=== PATIENT | male | born 1975 | race African-American/Black ===

== ENCOUNTER 2019-05-17 13:27 | Inpatient (IN) | payer OTHER ==
[~2019-05-17] VITALS: Ht 187.9 cm; Wt 89.9 kg
[2019-05-17] VITALS (29 sets, daily range): BP systolic 72–123; BP diastolic 33–76
--- NOTE | 2019-05-17 13:27 | NUR ---
PT ARRIVED AT 1305 BUT WAS NOT REGISTERED UNTIL THIS TIME, 1327.
[2019-05-17 14:17] LABS: BILIRUBIN NEGATIVE (NEGATIVE); BLOOD 3+ (NEGATIVE); CLARITY SL CLOUDY (CLEAR); COLOR YELLOW (YELLOW); GLUCOSE 1+ (NEGATIVE); KETONE NEGATIVE (NEGATIVE); LEUKO ESTERASE NEGATIVE (NEGATIVE); NITRITE NEGATIVE (NEGATIVE); UROBILINOGEN 0.2 E.U./dl (0.2-1.0)
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
[2019-05-17 14:24] LABS: ABG O2 SATURATION 92.3 % (95-97); ARTERIAL BLOOD GAS PCO2 60.9 mmHg (35-45); ARTERIAL BLOOD GAS PO2 85.3 mmHg (80-90)
[2019-05-17 14:25] LABS: URINE AMPHETAMINES < 1000 (1000ng/ml); URINE BARBITURATES < 200 (200ng/ml); URINE BENZODIAZEPINES < 200 (200ng/ml); URINE CANNABINOIDS (THC) > 50 (50ng/ml); URINE COCAINE > 300 (300ng/ml); URINE METHADONE < 300 (300ng/ml); URINE OPIATES > 300 (300ng/ml); URINE PHENCYCLIDINE < 25 (25ng/ml)
[2019-05-17 14:28] LABS: ABG BASE EXCESS -15.9 mmol/L (-2.0-2.0); ARTERIAL BLOOD GAS PH 7.049 (7.35-7.45)
--- NOTE | 2019-05-17 14:30 | NUR ---
VENT SETTINGS UPDATED: VT 500 R 16 PEEP 5 FIO2 50%
[2019-05-17 14:41] LABS: BACTERIA 2+; EPITHELIAL CELLS 0-2; FINE GRANULAR CAST 0-2; WBC 0-2 wbc/hpf (0-5)
[2019-05-17 14:49] LABS: HEMATOCRIT 50.8 % (42.0-52.0); HEMOGLOBIN 15.9 g/dl (14.0-18.0); MEAN CELL VOLUME 97.9 fl (80.0-94.0); MEAN CORPUSCULAR HGB 30.6 pg (27.0-31.0); MEAN CORPUSCULAR HGB CONC 31.3 g/dl (33.0-37.0); PLATELET COUNT AUTOMATED 213 10*3/uL (130-400); RED BLOOD COUNT 5.19 10*6/uL (4.50-5.90); RED CELL DISTRI WIDTH 13.2 % (0-14.5); WHITE BLOOD COUNT 15.9 10*3/uL (4.8-10.8)
--- NOTE | 2019-05-17 14:55 | NUR ---
PT TO CT NOW. VITALS AND POX STABLE AND UNCHANGE FOR 30 MINUTES OR MORE.
[2019-05-17 15:11] LABS: ALBUMIN 4.1 gm/dl (3.1-4.5); ALKALINE PHOSPHATASE 100 U/L (45-117); BUN 20 mg/dl (7-24); CHLORIDE 105 mmol/L (98-107); CREATININE 2.41 mg/dL (0.70-1.30); POTASSIUM 4.7 mmol/L (3.5-5.1); SGOT/AST 637 IU/L (3-35); SGPT/ALT 428 U/L (12-78); SODIUM 140 mmol/L (136-145)
--- NOTE | 2019-05-17 15:13 | NUR ---
PT NOW RETURNS FROM CT DEPARTMENT. NURSE REPORT TO SCOOTER SOLIS, FOR CONTINUATION OF CARE. BP DOWN TO 80/50 AUTOCUFF UPON ARRIVAL TO EXAM BED FROM CT. BP HAD BEEN STABLE IN THE 110'S PRIOR. SALINE BOLUS INFUSING. PROVIDER MADE AWARE.
[2019-05-17 15:14] LABS: ATYPICAL LYMPHS 1 % (0-0); TOTAL CELLS COUNTED 100 #CELLS
[2019-05-17 15:15] LABS: PLATELET SUFFICIENCY NORMAL (NORMAL)
[2019-05-17 15:22] LABS: CPK 1679 U/L (39-308)
[2019-05-17 15:24] LABS: ETHYL ALCOHOL < 3.0 mg/dl (<3); TROPONIN I 0.285 ng/ml (<0.045)
--- NOTE | 2019-05-17 15:50 | NUR ---
PROPOFOL DECREASED TO 40 MCG/KG/MIN. DR ARDON IN ROOM AND AWARE OF PT'S BLOOD PRESSURE AT THIS TIME.
--- NOTE | 2019-05-17 16:25 | NUR ---
A 44, admitted to ICCU, under the services of MARILUZ Bolton DO with a diagnosis of CHAR, resp failure, overdose. Chief complaint is in car in parking lot-unresponsive,apneic. Patient arrived via stretcher from ER. Monitor applied. Initial assessment completed. Vital signs taken and recorded. MARILUZ BOLTON DO notified of admission to the unit Pt intubated upon arrival to iccu, diprovan/levaphed, vanco infusing, rectal temp 89, bear hugger placed on, bilat wrist restraints on.klein secure See assessment for past medical history, medications and allergies. Patient and/or family oriented to unit. [facility] ICCU visitation policy reviewed. Clothing/patient valuable form completed. KAYODE ABRAHAM
[2019-05-17 17:40] LABS: ABG HCO3 21.5 mmol/l (22-26); ABG O2 SATURATION 88.2 % (95-97); ARTERIAL BLOOD GAS PCO2 45.9 mmHg (35-45); ARTERIAL BLOOD GAS PH 7.264 (7.35-7.45); ARTERIAL BLOOD GAS PO2 46.5 mmHg (80-90)
[2019-05-17 17:41] LABS: ABG BASE EXCESS -6.8 mmol/L (-2.0-2.0)
--- NOTE | 2019-05-17 17:50 | NUR ---
NOTIFIED OF NEW CONSULT ORDER.
[2019-05-17 17:54] LABS: ACT PARTIAL THROMBO TIME 26.5 SECONDS (20.0-32.1)
[2019-05-17 19:46] LABS: ABG BASE EXCESS -4.3 mmol/L (-2.0-2.0); ABG HCO3 22.6 mmol/l (22-26); ABG O2 SATURATION 95.8 % (95-97); ARTERIAL BLOOD GAS PH 7.307 (7.35-7.45); ARTERIAL BLOOD GAS PO2 71.3 mmHg (80-90)
--- NOTE | 2019-05-17 20:03 | NUR ---
MESSAGE LEFT ON DR. CLEVELAND'S ANSWERING MACHINE REGARDING CONSULT. ERA CLARK RN
--- NOTE | 2019-05-17 20:05 | NUR ---
SHARONA FROM RESP CALLED DR. ANTON WITH UPDATED ABG RESULTS. NO FURTHER ORDERS RECEIVED.
--- NOTE | 2019-05-17 20:30 | NUR ---
PT. RESTING QUIETLY SEDATED ON DIPROVAN DRIP AT 20MICS. LEVOPHED CONTINUES AT 7MICS. HEPARIN ALSO INFUSING AT 12UNITS. RIJ MLC INTACT, ALL PORTS PATENT. BEAR HUGGER REMAINS ON TO INCREASE CORE TEMP. OGT PLACEMENT CONFIRMED WITH CHEST XRAY AND AIR BOLUS. LUNGS HAVE RHONCHI BILAT, PULSE OX 96% ON 50% FIO2. PT. GIVEN ORAL MOUTH CARE AND SUCTIONED VIA ENDO AND ORALLY FOR MODERATE AMTS OF CLEAR AND THICK YELLOW SECRETIONS. PULIDO CATHETER DRAINING A CLEAR YELLOW URINE. SOFT WRIST RESTRAINTS ON BILAT TO PREVENT ACCIDENTAL SELF-EXTUBATION. ERA CLARK RN
--- NOTE | 2019-05-17 22:12 | NUR ---
MESSAGE LEFT ON DR. KOTHARI'S ANSWERING SERVICE REGARDING THE ELEV TROPONIN OF 1.020 FROM 0.827. ERA CLARK RN
--- NOTE | 2019-05-17 22:14 | NUR ---
TYLENOL GIVEN VIA OGT FOR TEMP OF 101.5 RECTALLY. BLOOD CULTURES OBTAINED IN THE ER PRIOR TO ADM TO THE FLOOR TODAY. BEAR HUGGER OFF PRIOR TO INCREASE IN TEMP. ERA CLARK RN
--- NOTE | 2019-05-17 22:46 | NUR ---
DR. KOTHARI RETURNED CALL, UPDATED TO PT STATUS AND CURRENT TROPONIN. ALSO TALKED WITH DR. KAMARA REGARDING PATIENTS CURRENT TEMP OF 101.8. WILL CONTINUE TO MONITOR. ERA CLARK RN
--- NOTE | 2019-05-17 23:39 | NUR ---
CURRENT TEMP 101.1, DOWN FROM 101.8, TYLENOL EFFECTIVELY WORKING. ERA CLARK RN
[2019-05-18] VITALS (47 sets, daily range): BP systolic 87–133; BP diastolic 50–77
--- NOTE | 2019-05-18 03:05 | NUR ---
PT'S PTT 90.9, HEPARIN HELD FOR 1 HOUR AND RESUMED AT 9UNITS AN HOUR THEREAFTER.
[2019-05-18 04:31] LABS: HEMATOCRIT 43.2 % (42.0-52.0); HEMOGLOBIN 14.4 g/dl (14.0-18.0); MEAN CORPUSCULAR HGB 30.6 pg (27.0-31.0); MEAN CORPUSCULAR HGB CONC 33.3 g/dl (33.0-37.0); MEAN PLATELET VOLUME 10.1 fl (9.6-12.3); PLATELET COUNT AUTOMATED 193 10*3/uL (130-400); RED BLOOD COUNT 4.71 10*6/uL (4.50-5.90); RED CELL DISTRI WIDTH 13.3 % (0-14.5); WHITE BLOOD COUNT 11.4 10*3/uL (4.8-10.8)
[2019-05-18 04:32] LABS: MEAN CELL VOLUME 91.7 fl (80.0-94.0)
[2019-05-18 04:43] LABS: ALBUMIN 3.1 gm/dl (3.1-4.5); CREATININE 2.26 mg/dL (0.70-1.30); PHOSPHOROUS 3.6 mg/dL (2.5-4.9); POTASSIUM 5.4 mmol/L (3.5-5.1); TOTAL PROTEIN 6.8 gm/dL (6.4-8.2)
[2019-05-18 04:51] LABS: PLATELET SUFFICIENCY NORMAL (NORMAL); TOTAL CELLS COUNTED 100 #CELLS
[2019-05-18 07:19] LABS: ABG BASE EXCESS -0.5 mmol/L (-2.0-2.0); ABG HCO3 23.7 mmol/l (22-26); ABG O2 SATURATION 98.2 % (95-97); ARTERIAL BLOOD GAS PCO2 40.7 mmHg (35-45); ARTERIAL BLOOD GAS PH 7.386 (7.35-7.45); ARTERIAL BLOOD GAS PO2 90.8 mmHg (80-90)
--- NOTE | 2019-05-18 07:28 | NUR ---
Shift chart check completed.24 HR chart check completed.
--- NOTE | 2019-05-18 08:16 | NUR ---
ON ASSESSMENT PATIENT IS LYING QUIETLY IN BED, ON VENTILATOR. DIPRIVAN AT 20MCG/KG/MIN. PT AROUSES TO HIS NAME, NODS HIS HEAD, SQUEEZES MY HAND ON COMMAND, THEREFORE NO SEDATION VACATION DONE. LEVOPHED DRIP CONTINUES AT 6MCG/MIN. HEPARIN DRIP AT 9UNITS/KG/MIN. PULIDO PATENT CLEAR YELLOW URINE. NO PERIPHERAL EDEMA. ABDOMEN IS SOFT AND NON-TENDER. ETT SECURE. SOFT WRIST RESTRAINTS INTACT WITH NO IMPAIRMENT TO CIRCULATION. CONTINUOUS RECTAL PROBE MONITORING RECTAL TEMP. BED IN LOW POSITION AND LOCKED. IN CLOSE OBSERVATION. SEE ALL APPROPRIATE INTERVENTIONS.
--- NOTE | 2019-05-18 09:00 | NUR ---
PT ON VENT, UNABLE TO VISIT AT THIS TIME. WILL CONTINUE TO FOLLOW.
--- NOTE | 2019-05-18 09:07 | NUR ---
DR ANTON AND FELIPA HAVE VISITED. ADELA ANTOINE TURNED OFF AT 0830. PT IS CALM, RESTING EASILY. HE AROUSES TO MY VOICE. HE SQUEEZES MY HAND WITH BOTH HANDS ON COMMAND. HE SHRUGS HIS SHOULDERS ON COMMAND.
--- NOTE | 2019-05-18 09:21 | NUR ---
PTT 62.4 (THERAPEUTIC). NO CHANGE IN INFUSION RATE. REPEAT PTT ORDERED FOR 11/12 AM.
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
--- NOTE | 2019-05-18 10:20 | NUR ---
LEVOPHED HAS BEEN TITRATED BY 50% TO 3MCG/MIN AND THEN OFF. MAP STAYING >65%.
--- NOTE | 2019-05-18 11:49 | NUR ---
A VISITOR IN TO SEE PT. PT IS COOPERATIVE. REMAINS ON NASAL CANNULA AT 2L/MIN. BP STABLE SINCE LEVOPHED D/C.
--- NOTE | 2019-05-18 13:52 | NUR ---
CATHTER HAS BEEN REMOVED AND HE HAS VOIDED SMALL AMOUNT YELLOW URINE. HE HAS MAINTAINED NPO FOR PAST 4 HOURS. NOW EATING POPSICLE. GIRLFRIEND AT BEDSIDE. ALL ARE COOPERATIVE.
--- NOTE | 2019-05-18 15:13 | NUR ---
DR STEINBERG HAS VISITED. ASPIRIN BY MOUTH GIVEN AND D5.45NS STARTED AT 100ML/HR TO INFUSE X 1 BAG PER HIS ORDERS. HE HAS HAD VISITORS AND HIS GIRLFRIEND HAS BROUGHT HIM GLASSES, TWO CELL PHONES AND HIS WALLET. HE'S SLEEPIER NOW THAN WHEN HE WAS EXTUBATED. HIS PHONE'S SET ON VIBRATE AND HE WILL AROUSE AND ANSWER THE PHONE.
--- NOTE | 2019-05-18 15:38 | NUR ---
PT HAS TOLERATED MORE POPSICLES.
--- NOTE | 2019-05-18 18:30 | NUR ---
PT WAS OUT OF BED TO CHAIR, ATE ALL CHEESEBURGER AND SOME LATVIAN FRIES. LONG HE WAS AWAKE HIS PULSE OX > 92% ON ROOM AIR. AFTER GETTING BACK IN BED WHEN HE SLEEPS HIS PULSE OX DROPS TO <90%. NASAL O2 2L/MIN REAPPLIED. FRIEND AT THE BEDSIDE SAYS THAT SHE THINKS HE STOPS BREATHING AT NIGHT.
[2019-05-19] VITALS: BP 118/71
[2019-05-19 04:00] VITALS: BP 128/82
[2019-05-19 06:04] LABS: BASO % 0.2 % (0.0-1.0); EOS # 0.2 10*3/uL (0.0-0.4); EOS % 1.3 % (1.0-4.0); HEMATOCRIT 38.6 % (42.0-52.0); HEMOGLOBIN 12.9 g/dl (14.0-18.0); LYMPH # 1.2 10*3/uL (1.3-4.4); LYMPH % 9.3 % (27.0-41.0); MEAN CELL VOLUME 91.9 fl (80.0-94.0); MEAN CORPUSCULAR HGB 30.7 pg (27.0-31.0); MEAN CORPUSCULAR HGB CONC 33.4 g/dl (33.0-37.0); MEAN PLATELET VOLUME 9.9 fl (9.6-12.3); MONO # 0.3 10*3/uL (0.1-1.0); MONO % 2.3 % (3.0-9.0); NEUT % 86.1 % (47.0-73.0); PLATELET COUNT AUTOMATED 151 10*3/uL (130-400); RED CELL DISTRI WIDTH 13.2 % (0-14.5); WHITE BLOOD COUNT 12.7 10*3/uL (4.8-10.8)
[2019-05-19 06:16] LABS: ALBUMIN 2.7 gm/dl (3.1-4.5); ALKALINE PHOSPHATASE 52 U/L (45-117); BUN 15 mg/dl (7-24); CHLORIDE 106 mmol/L (98-107); CREATININE 1.48 mg/dL (0.70-1.30); PHOSPHOROUS 1.6 mg/dL (2.5-4.9); SGOT/AST 230 IU/L (3-35); SGPT/ALT 288 U/L (12-78); SODIUM 140 mmol/L (136-145); TOTAL PROTEIN 6.4 gm/dL (6.4-8.2)
[2019-05-19 06:45] LABS: POTASSIUM 3.9 mmol/L (3.5-5.1)
[2019-05-19 08:00] VITALS: BP 121/79
--- NOTE | 2019-05-19 11:00 | NUR ---
HEPARIN GTT DC'D PER DR'S ORDER.
--- NOTE | 2019-05-19 11:52 | NUR ---
DR STEINBERG IN TO SEE PT. STRESS TEST ORDERED FOR TOMORROW. PT IS NOT WANTING TO STAY TILL TOMORROW. EDUCATION GIVEN TO PT ABOUT IMPORTANCE OF STAYING FOR COMPLETE TREATMENT. PT WILLING TO STAY FOR NOW HE SAID.
[2019-05-19 12:00] VITALS: BP 127/88
--- NOTE | 2019-05-19 15:44 | NUR ---
Library Attendant in to talk to patient. Patient states lives at home alone with friends checking in on him. There are 12 steps in the home. Physician: no family physician Pharmacy: none Home health services: none Patient's level of ADLs: INDEPENDENT Patient has working utilities: yes DME: none Follow-up physician's appointment after d/c: will be made by the hospitalist nurse director upon discharge Does patient want to access PORTAL?: no Discharge plan discussed with patient. He lives at home alone with his friends checking in on him. He is independent in his ADLs and ambulation. Discussed any home needs and he denies any home needs at this time. When medically stable he will be discharged to home. His friend, Kimberlyn, will provide transportation on discharge. NIKO QUIROGA
[2019-05-19 16:00] VITALS: BP 120/70
[2019-05-19 20:00] VITALS: BP 144/90
--- NOTE | 2019-05-19 20:30 | NUR ---
PATIENT ASSESSMENT COMPLETED AT THIS TIME WITHOUT INCIDENT, DENIES ANY CHEST PAIN/PRESSURE OR SHORTNESS OF BREATH AT THIS TIME. SEE EMAR FOR MEDICAITON ADMINISTRATION, CALL LIGHT WITHIN REACH WILL CONTINUE TO MONITOR.
--- NOTE | 2019-05-19 23:00 | NUR ---
24 HOOUR CHART CHECK COMPLETED
[2019-05-20] VITALS: BP 138/82
--- NOTE | 2019-05-20 04:20 | NUR ---
PATIENT RESTING IN BED WITH EYES CLOSED, RESPIRATIONS EASY AND NON-LABORED AT THIS TIME. IV INFUSING WITHOUT INCIDENT. CALL LIGHT WITHIN REACH WILL CONTINUE TO MONITOR.
[2019-05-20 06:04] LABS: BASO % 0.3 % (0.0-1.0); EOS # 0.2 10*3/uL (0.0-0.4); EOS % 1.7 % (1.0-4.0); HEMOGLOBIN 13.2 g/dl (14.0-18.0); LYMPH # 1.3 10*3/uL (1.3-4.4); MEAN CELL VOLUME 90.9 fl (80.0-94.0); MEAN CORPUSCULAR HGB 30.8 pg (27.0-31.0); MEAN CORPUSCULAR HGB CONC 33.8 g/dl (33.0-37.0); MEAN PLATELET VOLUME 10.3 fl (9.6-12.3); MONO # 0.4 10*3/uL (0.1-1.0); MONO % 3.7 % (3.0-9.0); NEUT # 9.1 10*3/uL (2.3-7.9); NEUT % 81.6 % (47.0-73.0); PLATELET COUNT AUTOMATED 174 10*3/uL (130-400); RED BLOOD COUNT 4.29 10*6/uL (4.50-5.90); WHITE BLOOD COUNT 11.1 10*3/uL (4.8-10.8)
[2019-05-20 06:23] LABS: ALBUMIN 2.8 gm/dl (3.1-4.5); BUN 8 mg/dl (7-24); CHLORIDE 110 mmol/L (98-107); PHOSPHOROUS 1.5 mg/dL (2.5-4.9); POTASSIUM 3.5 mmol/L (3.5-5.1); SGOT/AST 140 IU/L (3-35); SGPT/ALT 220 U/L (12-78); SODIUM 141 mmol/L (136-145)
[2019-05-20 06:24] LABS: ALKALINE PHOSPHATASE 54 U/L (45-117); CREATININE 1.46 mg/dL (0.70-1.30); TOTAL PROTEIN 6.9 gm/dL (6.4-8.2)
[2019-05-20 08:00] VITALS: BP 144/90
--- NOTE | 2019-05-20 09:55 | NUR ---
INFORMED CONSENT OBTAINED FOR LEXISCAN NUCLEAR STRESS TEST WITH DR. STEINBERG. RESTING EKG SINUS PING WITH A RESTING HR OF 59 WITH BP OF 138/88. LUNGS CLEAR WITH SPO2 OF 91% ON ROOM AIR. PT COMPLETED A 1:00 LEXISCAN PROTOCOL RECEIVING LEXISCAN 0.4 MG IV OVER 10 SECONDS. HAD NO CHEST PAIN OR ANY EKG CHANGES. HAD C/O SHORTNESS OF BREATH AND "ODD" FEELINGS THAT RESOLVED IN RECOVERY. HAD A PEAK HR OF 102 WITH BP OF 142/78. LAST RECOVERY HR OF 85 WITH BP OF 136/80. AWAITING SCANNING IN STABLE CONDITION.
--- NOTE | 2019-05-20 12:09 | NUR ---
PT LEFT AT THIS TIME AGAINST MEDICAL ADVICE. RIJ REMOVED. PT AMBULATED OFF THE FLOOR TO PRIVATE CAR. ENVIRONMENTAL MANAGEMENT SPECIALIST AND PHYSICIAN NOTIFIED.
== END 2019-05-20 12:41 | disposition left against medical advice (07) | DRG 720 ==
LOC: ED 13:27 → EDHOLD 15:33 → ICCU 15:33 → 4E 05-19 14:16
PROVIDERS: Emergency Medicine; Internal Medicine Critical Care Medicine; Student in an Organized Health Care Education/Training Program; ADMIT Emergency Medicine
PROC: 5A1945Z Respiratory Ventilation, 24-96 Consecutive Hours (ICD-10-PCS; principal; 2019-05-17)
PROC: 0BH17EZ Insertion of Endotracheal Airway into Trachea, Via Natural or Artificial Opening (ICD-10-PCS; 2019-05-17)
PROC: 02HV33Z Insertion of Infusion Device into Superior Vena Cava, Percutaneous Approach (ICD-10-PCS; 2019-05-17)
PROC: B548ZZA Ultrasonography of Superior Vena Cava, Guidance (ICD-10-PCS; 2019-05-17)
PROC: 4A02XM4 Measurement of Cardiac Total Activity, External Approach (ICD-10-PCS; 2019-05-20)
PROC: 3E073KZ Introduction of Other Diagnostic Substance into Coronary Artery, Percutaneous Approach (ICD-10-PCS; 2019-05-20)
DX: A41.9 Sepsis, unspecified organism (principal); T40.5X1A Poisoning by cocaine, accidental (unintentional), initial encounter; J69.0 Pneumonitis due to inhalation of food and vomit; R65.20 Severe sepsis without septic shock; T40.2X1A Poisoning by other opioids, accidental (unintentional), initial encounter; T68.XXXA Hypothermia, initial encounter; N17.0 Acute kidney failure with tubular necrosis; J96.02 Acute respiratory failure with hypercapnia; E87.2 Acidosis; T50.901A Poisoning by unspecified drugs, medicaments and biological substances, accidental (unintentional), initial encounter; S26.90XA Unspecified injury of heart, unspecified with or without hemopericardium, initial encounter; I21.A1 Myocardial infarction type 2; J96.01 Acute respiratory failure with hypoxia; M62.82 Rhabdomyolysis; R74.0 Nonspecific elevation of levels of transaminase and lactic acid dehydrogenase [LDH]; R57.9 Shock, unspecified; R73.9 Hyperglycemia, unspecified; E83.41 Hypermagnesemia; E88.09 Other disorders of plasma-protein metabolism, not elsewhere classified; F19.90 Other psychoactive substance use, unspecified, uncomplicated; E87.5 Hyperkalemia; E86.9 Volume depletion, unspecified; Z53.21 Procedure and treatment not carried out due to patient leaving prior to being seen by health care provider

== ENCOUNTER 2020-06-20 10:23 | Emergency (ER) | payer OTHER ==
[~2020-06-20] VITALS: Ht 190.5 cm; Wt 95.3 kg
[2020-06-20] MEDS ORDERED: PREDNISONE10 MG PO (11:13)
[2020-06-20] MEDS ORDERED: VISTARIL25 MG PO (11:13)
== END 2020-06-20 11:19 | disposition home or self-care (01) ==
LOC: ED 10:23
DX: L20.9 Atopic dermatitis, unspecified (principal)

== ENCOUNTER 2021-08-04 21:00 | Emergency (ER) | payer OTHER ==
[~2021-08-04] VITALS: Ht 190.5 cm; Wt 94.8 kg
[~2021-08-04 21:00] MED LIST: PREDNISONE10 MG PO; VISTARIL25 MG PO
== END 2021-08-04 21:45 | disposition home or self-care (01) ==
LOC: ED 21:00
DX: A64 Unspecified sexually transmitted disease (principal)